=== PATIENT | male | born 1990 ===

== ENCOUNTER 2018-03-17 01:31 | Emergency (ER) | payer MEDICAID ==
[2018-03-17 01:47] VITALS: RESP 18
[2018-03-17] MEDS ORDERED: Acetaminophen-Codeine 300/30 mg Tab PO ONE (02:31)
[2018-03-17] MEDS ORDERED: Silver Sulfadiazine 1% CREAM (50 gm) TOP STA (02:31)
[2018-03-17] MEDS ORDERED: Silver Sulfadiazine 1% CREAM (50 gm) ONE (02:38)
[2018-03-17] MEDS ORDERED: Acetaminophen-Codeine 300/30 mg Tab ONE (02:38)
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
[2018-03-17 03:37] VITALS: BP 120/75; PULSE 96; TEMP 98.2; O2SAT 99
== END 2018-03-17 03:32 | disposition home or self-care (01) ==
LOC: H.ER 01:31
DX: T23.001A Burn of unspecified degree of right hand, unspecified site, initial encounter (principal)